=== PATIENT | female | born 1975 | race Caucasian/White ===

== ENCOUNTER 2016-12-02 08:18 | Emergency (ER) | payer BC ==
[~2016-12-02] VITALS: Ht 167.6 cm; Wt 85.4 kg
[~2016-12-02 08:18] MED LIST: CELEXA20 MG PO; COL100 PO; MACROBID100 MG PO; NOR10T PO; NORCO1 TA2 PO; SPRINTEC1 TAB PO
[2016-12-02 09:13] LABS: BASOPHIL % 0.3 % (0-2); PLATELET COUNT 380 x10^3mcL (130-400); RED CELL DISTRIBUTION WIDTH 12.7 % (11.5-14.5)
[2016-12-02 09:24] LABS: CALCIUM 8.5 mg/dL (8.5-10.1); CARBON DIOXIDE 28.5 mmol/L (21-32); CHLORIDE SERUM 103 mmol/L (98-107); CREATININE SERUM 0.6 mg/dL (0.6-1.0); GFR1 > 60 mL/min; GLUCOSE SERUM 104 mg/dL (74-106); POTASSIUM SERUM 3.6 mmol/L (3.5-5.1); SODIUM SERUM 138 mmol/L (136-145)
[2016-12-02 09:28] LABS: UA SPECIFIC GRAVITY 1.015 (1.005-1.035); microscopic required? YES; urine erythrocyte 1+ (NEGATIVE)
[2016-12-02 09:29] LABS: ALKALINE PHOSPHATASE 106 U/L (46-116); ALT/SGPT 70 U/L (14-59); AMYLASE 32 U/L (25-115); AST/SGOT 127 U/L (15-37); BILIRUBIN TOTAL 0.5 mg/dL (0.20-1.00); LIPASE 110 IU/L (73-393); TOTAL PROTEIN, SERUM 7.4 g/dL (6.4-8.2)
[2016-12-02 09:31] LABS: ALBUMIN 3.3 g/dL (3.4-5.0)
[2016-12-02 11:26] VITALS: BP 113/70
== END 2016-12-02 11:26 | disposition home or self-care (01) ==
LOC: ED 08:18
PROVIDERS: Emergency Medicine
DX: R10.13 Epigastric pain (principal); F32.9 Major depressive disorder, single episode, unspecified; Z88.8 Allergy status to other drugs, medicaments and biological substances
CPT/HCPCS: J2405; J3010; Q0092; Q9967

== ENCOUNTER 2018-11-28 19:36 | Emergency (ER) | payer BC ==
[~2018-11-28] VITALS: Ht 167.6 cm; Wt 93.4 kg
[2018-11-28 19:39] VITALS: Ht 167.6 cm; Wt 93.4 kg
[2018-11-29 02:00] VITALS: BP 101/66
== END 2018-11-29 02:00 | disposition home or self-care (01) ==
LOC: ED 19:36
DX: R10.9 Unspecified abdominal pain (principal); G43.909 Migraine, unspecified, not intractable, without status migrainosus; F41.9 Anxiety disorder, unspecified; F32.9 Major depressive disorder, single episode, unspecified; Z88.6 Allergy status to analgesic agent
CPT/HCPCS: J0780; J2270; J7030; Q0162